=== PATIENT | female | born 1975 | race Caucasian/White ===

== ENCOUNTER 2021-09-04 10:08 | Emergency (ER) | payer OTHER ==
--- NOTE | 2021-09-04 10:40 | ED Physician Documentation ---
PD HPI HEENT - Stated complaint Stated Complaint: LUMP JAW - Chief complaint Chief Complaint: Heent - History obtained from History obtained from: Patient - History of Present Illness Timing - onset: Yesterday Timing - details: Gradual onset Location: Right ear (inferior to the right ear) - Additional information Additional information: It is a constant pain, worse if she opens her mouth but not necessarily with chewing. It also feels more inflamed when she was brushing her teeth this morning. No fevers or chills. Review of Systems Constitutional: reports: Reviewed and negative Eyes: reports: Reviewed and negative Ears: reports: Reviewed and negative Nose: reports: Reviewed and negative Throat: reports: Reviewed and negative PD PAST MEDICAL HISTORY - Present Medications Home Medications: Ambulatory Orders Medication Instructions Recorded Confirmed Amox/Clav 875/125 [Augmentin] 1 each PO Q12H #20 tablet 09/04/21 - Allergies Allergies/Adverse Reactions: Allergies Allergy/AdvReac Type Severity Reaction Status Date / Time No Known Drug Allergies Allergy Verified 09/04/21 10:11 PD ED PE NORMAL - Vitals Vital signs reviewed: Yes - General General: Alert and oriented X 3, No acute distress - HEENT HEENT: PERRL, EOMI, Other (She is tender over the angle of the right mandible, more so than the TMJ but the TMJ is a bit tender as well. No obvious swelling at this time. She is missing a lot of teeth but the ones remaining do not look inflamed per se. TMs are normal.) - Neck Neck: Supple, no meningeal sign, No bony TTP - Cardiac Cardiac: RRR, No murmur - Abdomen Abdomen: Non tender - Neuro Neuro: Alert and oriented X 3, Normal speech Results - Vitals Vitals: Vital Signs - 24 hr 09/04/21 09/04/21 10:12 12:31 Temperature 36.5 C 36.9 C Heart Rate 90 75 Respiratory 16 16 Rate Blood Pressure 133/88 H 107/62 O2 Saturation 100 100 Oxygen O2 Source Room air - Labs Labs: Laboratory Tests 09/04/21 11:05 Sodium 142 Potassium 4.4 Chloride 103 Carbon Dioxide 26 Anion Gap 13.0 BUN 7 Creatinine 0.8 Estimated GFR (MDRD) 78 L Glucose 105 H Calcium 9.9 PD MEDICAL DECISION MAKING - ED course ED course: 46-year-old woman with right-sided facial pain, does not seem like TMJ on exam is a little inferior to that. Found to have parotitis on CT that is "mild." Is started on Augmentin for same. Departure - Departure Disposition: 01 Home, Self Care Clinical Impression: Parotitis Condition: Good Record reviewed to determine appropriate education?: Yes Instructions: ED Submandibular Gland Infec Prescriptions: Amox/Clav 875/125 [Augmentin] 1 each PO Q12H #20 tablet Comments: Today you were seen for right-sided facial swelling and pain. This is due to inflammation and infection of the parotid gland which is a known complication of dental cleaning as you had a couple of weeks ago. I sent your antibiotic prescription to [facility] in [place]. Return for new or worsening symptoms. Follow-up with your doctor in a week or so for recheck. Discharge Date/Time: 09/04/21 12:32
[2021-09-04] MEDS ORDERED: IOVERSOL 320 100 ML VIAL IVP ONE ×2 (10:58→11:40)
[2021-09-04 11:16] LABS: CALCIUM 9.9 mg/dL (8.5-10.3); CREATININE 0.8 mg/dL (0.4-1.0); POTASSIUM 4.4 mmol/L (3.5-5.0)
--- NOTE | 2021-09-04 12:10 | CT Report ---
PROCEDURE: CT neck with contrast INDICATIONS: R neck pain CONTRAST: IV CONTRAST: Optiray 320 ml: 100 PO CONTRAST: *NO PO CONTRAST TECHNIQUE: After the administration of intravenous contrast, 3.0 mm axial sections acquired from the sella to th e aortic arch. Additional oblique axial 3.0 mm sections acquired through the pharynx. 3 mm thick co anali reformats were generated. For radiation dose reduction, the following was used: automated exp osure control, adjustment of mA and/or kV according to patient size. COMPARISON: None. FINDINGS: Image quality: Excellent. Lymph nodes: No enlarged lymph nodes seen throughout the neck. Vessels: Visualized vasculature appears patent. Neck spaces: The oropharynx, nasopharynx, and pharynx demonstrate no mucosal lesions. The vocal cor ds, false vocal cords, pyriform sinuses, epiglottis, vallecula, and tongue base all appear normal. E xtramucosal spaces appear unremarkable. Glands: There is asymmetric enhancement enlargement of the right parotid gland noted with mild peripa rotid edema. Both submandibular glands are unremarkable. Miscellaneous: Visualized brain and orbits appear normal. Lung apices appear clear. Superficial so ft tissues appear normal. Bones: No suspicious bony lesions. Visualized sinuses and mastoids appear unremarkable. IMPRESSION: Mild right parotiditis. No mass lesion, calculus or salivary gland duct obstruction. Reviewed by: Milan Lui MD on 09/04/2021 11:09 AM WARNER Approved by: Milan Lui MD on 09/04/2021 11:09 AM WARNER Station ID: [id number]
[2021-09-04 12:32] VITALS: BP 107/62
== END 2021-09-04 12:32 | disposition home or self-care (01) ==
LOC: ED 10:08
DX: K11.20 Sialoadenitis, unspecified (principal)
CPT/HCPCS: 36415; 70491; 80048; 99284; Q9967

== ENCOUNTER 2023-02-14 11:36 | Emergency (ER) | payer OTHER ==
[2023-02-14] MEDS ORDERED: SODIUM CHLORIDE 0.9% 1,000 ML IV STA ×2 (11:53)
--- NOTE | 2023-02-14 11:57 | ED Physician Documentation ---
History of Present Illness - Stated complaint Stated Complaint: POTS EPISODE - Additonal information Additional information: 47-year-old female who reports a past medical history of POTS presents to the emergency department via POV accompanied by her . She was shopping at the commissary when she began to have an episode that includes general tremors and shakes. She states that her POTS episodes usually last only about a minute but she has been unable to get this 1 to fully thiago. Patient does not have syncope with her symptoms. States on average she has the episodes about once a week and usually in or after a shower. States she was diagnosed with POTS in 2013 and they tried multiple medical therapies to no avail. Currently taking no medications for relief of POTS. States she tries to drink 3 to 4 L of water a day and maintain a salt intake. Patient states that the things that have helped her the most in management of her condition were getting regular exercise and wearing compressive stockings. However she started a job and lost the ability to exercise. It also resulted in her having to stand for long periods of time. Subsequently as her POTS worsened she stopped that job. Here in the emergency department on initial presentation I am presented by an alert well-groomed well-appearing female who appears to be in no distress though when I begin to ask the patient to move through a neurological exam such as finger-nose or raising her legs she begins to have generalized shakes and an elevation in her heart rate to the 140s which remained sinus. She is laid supine and within seconds begins to have improvement in symptoms. She also has stuttering during the event Patient states to me at the end of our initial encounter that she is worried she could have a kidney infection she has been having low back pain but no urinary urgency dysuria or frequency. Denies the possibility of Review of Systems Constitutional: denies: Fever, Chills Eyes: reports: Reviewed and negative Ears: reports: Reviewed and negative Nose: reports: Reviewed and negative Respiratory: reports: Reviewed and negative GI: reports: Reviewed and negative : reports: Reviewed and negative Skin: reports: Reviewed and negative Musculoskeletal: reports: Reviewed and negative Neurologic: reports: Difficulty speaking, Other (Generalized tremor and shaking all 4 extremities with purposeful movement). denies: Focal weakness, Numbness, Headache, Head injury, LOC PD PAST MEDICAL HISTORY - Present Medications Home Medications: Ambulatory Orders Medication Instructions Recorded Confirmed Amox/Clav 875/125 [Augmentin] 1 each PO Q12H #20 tablet 09/04/21 - Allergies Allergies/Adverse Reactions: Allergies Allergy/AdvReac Type Severity Reaction Status Date / Time No Known Drug Allergies Allergy Verified 09/04/21 10:11 PD ED PE NORMAL - General General: Alert and oriented X 3, No acute distress, Well developed/nourished - HEENT HEENT: Atraumatic, Moist mucous membranes - Neck Neck: Supple, no meningeal sign, No adenopathy - Cardiac Cardiac: RRR, No murmur - Respiratory Respiratory: No respiratory distress, Clear bilaterally - Abdomen Abdomen: Normal bowel sounds, Soft, Non tender - Back Back: No CVA TTP, No spinal TTP - Derm Derm: Normal color, Warm and dry, No rash - Neuro Neuro: Alert and oriented X 3, shuttle filler 2-12 intact, No motor deficit, No sensory deficit, Other (Patient is a Glascow of 15 with no obvious focal neurodeficits. NIHSS is 0. However when prompted to move through the neurological exam it does induce a generalized tremor and shaking in all 4 extremities with an elevation in heart rate. When laid supine symptoms thiago). No: Normal speech Eye Opening: Spontaneous Motor: Obeys Commands Verbal: Oriented GCS Score: 15 Results - Vitals Vitals: Vital Signs - 24 hr 02/14/23 02/14/23 02/14/23 11:56 12:22 12:42 Temperature 36.9 C Heart Rate 95 84 68 Respiratory 20 16 Rate Blood Pressure 131/91 H 130/85 H O2 Saturation 100 100 02/14/23 13:20 Temperature Heart Rate 71 Respiratory Rate Blood Pressure 121/74 O2 Saturation Oxygen O2 Source Room air - EKG (time done) 1154 EKG releavant findings:: EKG personally interpreted by author of this note. Relevant findings are: Rate: Rate (enter#) (98) Rhythm: NSR [place]: Normal Intervals: Normal TX QRS: Low voltage Ischemia: Normal ST segments Compare to prior EKG: Old EKG unavailable Computer interpretation: Agree with computer - Labs Labs: Laboratory Tests 02/14/23 02/14/23 02/14/23 12:04 12:04 12:04 WBC 9.6 RBC 4.34 Hgb 13.4 Hct 39.7 MCV 91.5 MCH 30.9 MCHC 33.8 RDW 12.6 Plt Count 191 MPV 10.1 Neut # (Auto) 6.9 H Lymph # (Auto) 2.1 [place] # (Auto) 0.4 Eos # (Auto) 0.1 Baso # (Auto) 0.1 Absolute Nucleated RBC 0.00 Nucleated RBC % 0.0 Sodium 140 Potassium 4.1 Chloride 107 Carbon Dioxide 25 Anion Gap 8.0 BUN 8 Creatinine 0.8 Estimated GFR (MDRD) 78 L Glucose 103 H Calcium 9.3 Total Bilirubin 0.4 AST 17 ALT 11 Alkaline Phosphatase 37 L Troponin I High Sens 4.6 Total Protein 6.8 Albumin 4.2 Globulin 2.6 Albumin/Globulin Ratio 1.6 Lipase 32 Urine Color Urine Clarity Urine pH Ur Specific Sanders Urine Protein Urine Glucose (UA) Urine Ketones Urine Occult Blood Urine Nitrite Urine Bilirubin Urine Urobilinogen Ur Leukocyte Esterase Urine RBC Urine WBC Ur Squamous Epith Cells Urine Bacteria Ur Microscopic Review Urine Culture Comments Urine HCG, Qual 02/14/23 12:20 WBC RBC Hgb Hct MCV MCH MCHC RDW Plt Count MPV Neut # (Auto) Lymph # (Auto) [place] # (Auto) Eos # (Auto) Baso # (Auto) Absolute Nucleated RBC Nucleated RBC % Sodium Potassium Chloride Carbon Dioxide Anion Gap BUN Creatinine Estimated GFR (MDRD) Glucose Calcium Total Bilirubin AST ALT Alkaline Phosphatase Troponin I High Sens Total Protein Albumin Globulin Albumin/Globulin Ratio Lipase Urine Color LIGHT YELLOW Urine Clarity CLEAR Urine pH 6.0 Ur Specific Sanders <=1.005 Urine Protein NEGATIVE Urine Glucose (UA) NEGATIVE Urine Ketones NEGATIVE Urine Occult Blood NEGATIVE Urine Nitrite NEGATIVE Urine Bilirubin NEGATIVE Urine Urobilinogen 0.2 (NORMAL) Ur Leukocyte Esterase TRACE H Urine RBC 0-5 Urine WBC 6-10 H Ur Squamous Epith Cells FEW Squamous Urine Bacteria Few Ur Microscopic Review INDICATED Urine Culture Comments INDICATED Urine HCG, Qual NEGATIVE PD Medical Decision Making - ED course Complexity details: d/w patient, d/w family ED course: 47-year-old female presents emergency department for evaluation of POTS syndrome. She has had this since 2013. Typically it is managed with aerobic activity and leg compression as well as hydration and adequate salt intake. Recently however she had to stop exercising because she began working and the symptoms have worsened. On presentation at rest she was well but anytime she attempted to walk or go through the involuntary movements of a neurological exam she began to shake. I did obtain CBC electrolytes which showed no worrisome findings. Patient reported low back pain but no urinary symptoms. Her urinalysis is not consistent with acute cystitis. History and exam is consistent with POTS. Given the generalized shaking in all extremities and lack of focal deficits this is not consistent with a seizure disorder or CVA. Here in the emergency department patient was repleted with 2 L of fluid. Following this she was asked to ambulate in the room and though she got up well she began to shake and was sat back down. However about 20 to 30 minutes after this she began walking again which she described to be her normal baseline without shaking and feeling orthostatic. At this time she is discharged home in stable condition with the usual emergent return precautions discussed. Departure - Departure Disposition: 01 Home, Self Care Clinical Impression: POTS (postural orthostatic tachycardia syndrome) Condition: Stable Record reviewed to determine appropriate education?: Yes Comments: Yelena you came to the emergency department today because you began to get very shaky and weak when ambulating at the commissary. You do have a history of POTS. Your exam today is consistent with your history of POTS. We did obtain, CBC and electrolytes that were all essentially normal. Your urine shows no signs of infection. We did give you 2 L of IV fluid and after a bit of time and rest you are now able to ambulate normally. As we discussed at the bedside I suspect that your POTS has worsened recently as you went back to work and were unable to do your exercise and aerobic activity as you previously had. Is important you continue to follow with a primary care doctor with your new home in [place]. I wish you well.
[2023-02-14 12:09] LABS: BASOPHILS # (AUTO) 0.1 10^3/uL (0.0-0.1); BASOPHILS % (AUTO) 0.7 %; EOSINOPHILS # (AUTO) 0.1 10^3/uL (0.0-0.7); HCT - HEMATOCRIT 39.7 % (37.0-47.0); HGB - HEMOGLOBIN 13.4 g/dL (12.0-16.0); LYMPHOCYTES # (AUTO) 2.1 10^3/uL (1.5-3.5); LYMPHOCYTES % (AUTO) 21.6 %; MEAN CORPUSCULAR HEMOGLOBIN 30.9 pg (27.0-31.0); MEAN CORPUSCULAR HGB CONC 33.8 g/dL (32.0-36.0); MEAN CORPUSCULAR VOLUME 91.5 fL (81.0-99.0); MEAN PLATELET VOLUME 10.1 fL (7.9-10.8); MONOCYTES # (AUTO) 0.4 10^3/uL (0.0-1.0); MONOCYTES % (AUTO) 4.4 %; NEUTROPHILS # (AUTO) 6.9 10^3/uL (1.5-6.6); NEUTROPHILS % (AUTO) 72.1 %; PLT - PLATELET COUNT 191 10^3/uL (130-450); RED BLOOD COUNT 4.34 10^6/uL (4.20-5.40); RED CELL DISTRIBUTION WIDTH 12.6 % (12.0-15.0); WHITE BLOOD COUNT 9.6 x10^3/uL (4.8-10.8)
--- NOTE | 2023-02-14 12:26 | XRAY Report ---
PROCEDURE: Chest 1 View X-Ray INDICATIONS: Chest Pain TECHNIQUE: One view of the chest was acquired. COMPARISON: None. FINDINGS: Surgical changes and devices: None. Lungs and pleura: No pleural effusions or pneumothorax. Lungs are clear. Mediastinum: Mediastinal contours appear normal. Heart size is normal. Bones and chest wall: No suspicious bony lesions. Overlying soft tissues appear unremarkable. IMPRESSION: No acute cardiopulmonary process. Reviewed by: Alvaro Alonzo on 02/14/2023 12:25 PM PDT Approved by: Alvaro Alonzo on 02/14/2023 12:25 PM PDT Station ID: [id number]
[2023-02-14 12:32] LABS: ALBUMIN 4.2 g/dL (3.2-5.5); ALBUMIN/GLOBULIN RATIO 1.6 (1.0-2.2); BILIRUBIN,TOTAL 0.4 mg/dL (0.2-1.0); CALCIUM 9.3 mg/dL (8.5-10.3); CREATININE 0.8 mg/dL (0.4-1.0); POTASSIUM 4.1 mmol/L (3.5-5.0); TOTAL PROTEIN 6.8 g/dL (6.7-8.2)
[2023-02-14 12:50] LABS: BILIRUBIN,URINE NEGATIVE (NEGATIVE); GLUCOSE, URINE (UA) NEGATIVE (NEGATIVE); KETONES,URINE (UA) NEGATIVE (NEGATIVE); LEUKOCYTE ESTERASE, URINE TRACE (NEGATIVE); NITRITE,URINE NEGATIVE (NEGATIVE); OCCULT BLOOD,URINE NEGATIVE (NEGATIVE); PROTEIN,URINE NEGATIVE (NEGATIVE); UROBILINOGEN,URINE 0.2 (NORMAL) E.U./dL (NORMAL)
[2023-02-14 13:01] LABS: CLARITY,URINE CLEAR (CLEAR); HCG UR QUAL NEGATIVE
[2023-02-14 13:02] LABS: BACTERIA,URINE Few /HPF (None Seen); RBC,URINE 0-5 /HPF (0-5); SQUAMOUS EPITHELIAL CELL,UR FEW Squamous (<= Few)
[2023-02-14 13:20] VITALS: BP 121/74
== END 2023-02-14 14:44 | disposition home or self-care (01) ==
LOC: ED 11:36
DX: G90.A Postural orthostatic tachycardia syndrome [POTS] (principal)
CPT/HCPCS: 36415; 80053; 81001; 81003; 81025; 83690; 84484; 85025; 87086; 93005; 96360; 96361; 99284